=== PATIENT | female | born 1965 | race Caucasian/White ===

== ENCOUNTER 2016-07-10 00:26 | Day surgery (SDC) | payer BC ==
[2016-07-10] MEDS ORDERED: PROZAC20 M3 PO (00:48)
[2016-07-10] MEDS ORDERED: OMEPRAZOLE20 M4 PO (00:48)
[2016-07-10] MEDS ORDERED: HYDROCHLOROTH12.5 M2 (00:49)
[2016-07-10] MEDS ORDERED: BUSPIRONE HCL30 M1 PO (00:55)
[2016-07-10 00:58] LABS: URINE BILIRUBIN NEGATIVE (NEG); URINE BLOOD SMALL (NEG); URINE GLUCOSE (UA) NEGATIVE (NEG); URINE KETONE NEGATIVE (NEG); URINE LEUKOCYTE ESTERASE NEGATIVE (NEG); URINE NITRITE NEGATIVE (NEG); URINE PROTEIN SMALL (NEG)
[2016-07-10 01:01] LABS: URINE APPEARANCE CLEAR; URINE COLOR YELLOW
[2016-07-10 01:14] LABS: URINE WBC 0-1 /[HPF] (0-5)
[2016-07-10 01:15] LABS: URINE BACTERIA 1+
[2016-07-10 02:55] LABS: BASO % 0.1 % (0-2); HCT-HEMATOCRIT 36.8 % (34.0-49.0); HGB-HEMOGLOBIN 12.4 gm/dl (12.0-15.5); IMMATURE GRANULOCYTES ABSOLUTE 0.04 tho/cmm (0-0.03); IMMATURE GRANULOCYTES PERCENT 0.2 % (0-0.3); LYMPH % 7.3 % (20-45); LYMPH ABSOLUTE COUNT 1.3 tho/cmm (0.8-4.5); MCH (MEAN CORPUSCULAR HGB) 28.4 pg (28.0-32.0); MCHC MEAN CORPUSCULAR HGB CONC 33.7 % (32.0-36.0); MCV (MEAN CELL VOLUME) 84.2 fl (82.0-96.0); MEAN PLATELET VOLUME 10.1 cmc (9.4-12.4); MONOCYTE ABSOLUTE COUNT 0.7 tho/cmm (0.0-1.2); NEUTROPHIL ABSOLUTE COUNT 15.2 tho/cmm (1.6-8.0); NEUTROPHIL-AUTOMATED 15.2 tho/cmm (1.6-8.0); NEUTROPHILS % 88.4 % (40-80); PLATELET COUNT 364 tho/cmm (150-450); RED BLOOD COUNT 4.37 mil/cmm (4.00-5.20); RED CELL DISTRIBUTION WIDTH 13.2 % (12.4-16.4); WHITE BLOOD COUNT 17.2 tho/cmm (4.0-10.0)
[2016-07-10 03:03] LABS: ANION GAP 15 mmol/L (0-20); BLOOD UREA NITROGEN 12 mg/dl (6-24); CALCIUM 8.8 mg/dl (8.5-10.5); CARBON DIOXIDE-VENOUS 26 mmol/L (22-32); CHLORIDE 100 mmol/l (96-110); CREATININE 0.75 mg/dl (0.50-1.10); GLUCOSE 149 mg/dL (70-110); POTASSIUM 3.6 mmol/L (3.7-5.1); SODIUM 137 mmol/L (135-145); eGFR VALUE FOR BLACK >90 mL/Min
[2016-07-10] MEDS ORDERED: HYDROCODON-ACE1 EA16 PO (14:06)
[2016-07-10] MEDS ORDERED: COLACE100 M1 PO (14:06)
== END 2016-07-10 15:00 ==
LOC: EDMED 00:26 → EMR2 07:14 → PACU 07:15 → 5EC 08:00
PROVIDERS: Emergency Medicine; Physician Assistant
PROC: 0DTJ4ZZ Resection of Appendix, Percutaneous Endoscopic Approach (ICD-10-PCS; principal; 2016-07-10)
DX: K35.80 Unspecified acute appendicitis (principal); K66.0 Peritoneal adhesions (postprocedural) (postinfection); I10 Essential (primary) hypertension; K21.9 Gastro-esophageal reflux disease without esophagitis; Z79.899 Other long term (current) drug therapy; Z87.891 Personal history of nicotine dependence; Z82.49 Family history of ischemic heart disease and other diseases of the circulatory system; Z80.1 Family history of malignant neoplasm of trachea, bronchus and lung; Z98.890 Other specified postprocedural states
CPT/HCPCS: J1335; J2270; J2405; J3010; J7030; Q9967